=== PATIENT | female | born 1990 | race African-American/Black ===

== ENCOUNTER 2023-11-20 21:17 | Emergency (ER) | payer SELFPAY ==
[~2023-11-20] VITALS: Ht 175.3 cm; Wt 75.0 kg
[2023-11-20 21:22] VITALS: BP 126/84; PULSE 90; RESP 20; TEMP 97.2; O2SAT 98
[2023-11-20] MEDS ORDERED: IBUPROFEN 600MG TABLET PO ONE (21:45)
[2023-11-20] MEDS ORDERED: BACITRACIN ZINC OINT UDPKT TOP ONE (21:45)
[2023-11-20] MEDS ORDERED: TETANUS, DIPHTHERIA, PERTUSSIS VAC/PF 0.5ML (>10YR OLD) IM ONE (21:45)
[2023-11-20] MEDS ORDERED: NAPR220C61 MT (23:28)
== END 2023-11-21 00:13 | disposition home or self-care (01) ==
LOC: ER 21:17
DX: S81.811A Laceration without foreign body, right lower leg, initial encounter (principal); G89.11 Acute pain due to trauma; I10 Essential (primary) hypertension; V49.49XA Driver injured in collision with other motor vehicles in traffic accident, initial encounter; Y93.89 Activity, other specified; Y92.89 Other specified places as the place of occurrence of the external cause; Y99.8 Other external cause status
CPT/HCPCS: 29125; 73090; 73100; 73120; 73590; 90471; 90715; 99284